=== PATIENT | male | born 1950 | race Caucasian/White ===

== ENCOUNTER → 2017-02-10 | Outpatient (CLI) | payer MEDICARE, OTHER | END | disposition home or self-care (01) | LOC: PTH.S 07:56 → RAD.S 08:30 | DX: Z00.00 Encounter for general adult medical examination without abnormal findings (principal); M47.12 Other spondylosis with myelopathy, cervical region; M47.22 Other spondylosis with radiculopathy, cervical region; M43.12 Spondylolisthesis, cervical region; M48.02 Spinal stenosis, cervical region; G95.89 Other specified diseases of spinal cord ==

== ENCOUNTER → 2017-06-03 | Outpatient (CLI) | payer MEDICARE, OTHER | END | disposition home or self-care (01) | LOC: PTH.S 13:45 | DX: Z01.812 Encounter for preprocedural laboratory examination (principal); Z87.891 Personal history of nicotine dependence ==

== ENCOUNTER 2017-06-18 16:03 | Inpatient (IN) | payer MEDICARE, OTHER, MEDICAID ==
[~2017-06-18] VITALS: Ht 182.9 cm; Wt 60.3 kg
--- NOTE | 2017-06-23 07:17 | HP ---
ADMIT: 06/18/2017 RM/LOC: 617 [facility] MR#: [id number] [facility]#: [id number] [address] [facility] [address] [place] [id number] JACEK VELEZ [address] [place] [address] History and Physical SEX: M AGE: 66 : 1950 DATE OF SERVICE: 06/18/2017 CHIEF COMPLAINT: Weakness, unable to ambulate, and constipation. 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 Since then, he has had progressive kyphosis and pain and weakness in his lower extremities. He was actually scheduled for neck surgery in [place] this week. However, Anesthesia canceled at the last second as they did not feel that the patient was fit from a Cardiology standpoint. He actually underwent a stress test earlier today which was normal. Unfortunately, his neurosurgeon is out of town until next week. He currently just complains of severe constipation and abdominal discomfort. His is concerned because he is unable to ambulate, he is wheel chair bound, and she and her family are unable to complete transfers and take care of him. PAST MEDICAL HISTORY: 1. MRSA endocarditis. 2. MRSA discitis/osteomyelitis. 3. C2 through C7 fusion. SOCIAL HISTORY: The patient is . His is currently with him. He denies smoking, drinking, or doing any drugs. FAMILY HISTORY: Father with history of heart attack and diabetes. MEDICATIONS: 1. Fentanyl patch 100 mcg x2 q.72 hours. 2. Lyrica 300 mg t.i.d. ALLERGIES: NO KNOWN MEDICAL ALLERGIES. REVIEW OF SYSTEMS: CONSTITUTIONAL: Generalized malaise, fatigue. EYES: No changes in vision. HEENT: Negative. GI: Constipation. : Negative. CARDIOVASCULAR: Negative. RESPIRATORY: Negative. MUSCULOSKELETAL: Chronic neck pain. NEUROLOGIC: Progressive lower extremity weakness, chronic. HEMATOLOGIC: Negative. PHYSICAL EXAMINATION: VITAL SIGNS: Blood pressure 126/88, pulse 60, respirations 16, afebrile, oxygen saturation 96% on room air. GENERAL: In no acute distress. Alert and oriented x3. NECK: Appears to be fibrotic and stiff. Pain with passive and active range of motion. Thyroid is normal. HEENT: Pupils are equal, round, and reactive to light and accommodation. ADMIT: 06/18/2017 RM/LOC: 617 [facility] MR#: [id number] [address] [id number] JACEK VELEZ [facility] [place] [address] History and Physical SEX: M AGE: 66 : 1950 Extraocular muscles are intact. Oropharynx is normal. HEART: Regular rate and rhythm. No murmurs, rubs, or gallops. LUNGS: Clear to auscultation bilaterally. No wheezes or crackles. ABDOMEN: Soft, nontender, and nondistended. Normal bowel sounds. MUSCULOSKELETAL: Neck with decreased range of motion secondary to stiffness and pain. Back with decreased range of motion as well. All of this is chronic. NEUROLOGIC: Strength in bilateral lower extremities, 4/5. Strength in upper extremities is 5/5. DTRs are 2+ throughout. Cranial nerves intact. No focal deficits. LABORATORY DATA: No labs to report. IMAGING: No new imaging to report. ASSESSMENT: The patient is a 66-year-old male with history of MRSA endocarditis and discitis with C2 through C7 fusion, who presents to the ER with progressive bilateral leg weakness and severe constipation. 1. Bilateral lower extremity weakness. 2. Severe constipation. 3. History of chronic neck pain with C2 through C7 fusion limiting mobility. PLAN: We will admit the patient to hospital for safety purposes as he would be unable to be ambulated at home and is high fall risk. We will consult Social Work to help find placement at the skilled facility that can help take care of him until he gets his next surgery rescheduled. For his constipation, we will start MiraLax, docusate, and have Dulcolax suppositories available p.r.n. He actually got a shot of Relistor in the ER which has already produced a bowel movement, although still hard and pellet like. We will have Physical Therapy see as well to help with strengthening while in the hospital. The patient is seen and discussed with Dr. Siu. Dwight Marrufo MD Resident / Aston Siu MD / shandra JOB #: [id number] CC: Aston Siu, Attending Physician Aston Siu, Family Physician
--- NOTE | 2017-06-23 09:37 | ER ---
ADMIT: 06/18/2017 RM/LOC: 617 [facility] MR#: [id number] [address] [facility] [address] [place] [id number] JACEK VELEZ [address] [place] [address] Emergency Room Report SEX: M AGE: 66 : 1950 DATE: 06/18/2017 ADDENDUM: CHIEF COMPLAINT: 1. Weakness. 2. Constipation. 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 He was supposed to have surgery this week and it got cancelled. is just having a difficult time taking care of him. He is very weak. He cannot stand on his own. The other complaint is that he has been constipated for 10 days. He constantly feels the urge to go but he has not been able to go. COURSE IN THE EMERGENCY ROOM: Did social work consult. They did come and talk to the patient, but were not able to place at this time. We did give him Relistor 12 mg subcu. I did speak with Dr. Siu at 1720 hours and he will admit the patient. CLINICAL IMPRESSION: 1. Unable to care for self secondary to weakness secondary to neck injury from methicillin-resistant Staphylococcus aureus. 2. Constipation. FRANCO Cuevas / Vitaly Kathleen MD / jaronl JOB #: [id number] CC: Aston Siu MD, Attending Physician Aston Siu MD, Family Physician
== END 2017-06-21 11:23 | DRG 551 ==
LOC: ER 16:03 → 5MS 17:45 → 6PED 17:45 → 5MS 06-19 17:42
PROVIDERS: ADMIT Family Medicine
DX: M47.12 Other spondylosis with myelopathy, cervical region (principal); L89.153 Pressure ulcer of sacral region, stage 3; G95.89 Other specified diseases of spinal cord; K31.84 Gastroparesis; F11.20 Opioid dependence, uncomplicated; G82.20 Paraplegia, unspecified; J44.9 Chronic obstructive pulmonary disease, unspecified; B94.8 Sequelae of other specified infectious and parasitic diseases; K59.00 Constipation, unspecified; G89.4 Chronic pain syndrome; M40.209 Unspecified kyphosis, site unspecified; Z86.14 Personal history of Methicillin resistant Staphylococcus aureus infection; Z98.1 Arthrodesis status; Z82.49 Family history of ischemic heart disease and other diseases of the circulatory system; Z66 Do not resuscitate; Z87.891 Personal history of nicotine dependence; Z87.11 Personal history of peptic ulcer disease